=== PATIENT | female | born 1950 | race Caucasian/White ===

== ENCOUNTER 2020-10-22 23:16 | Emergency (ER) | payer MEDICARE ==
[2020-10-22] MEDS ORDERED: Zofran 4 MG/2 ML VIAL IV ONE (23:43)
[2020-10-22] MEDS ORDERED: Sodium Chloride 0.9% 1000 ML 1,000 ML IV STA (23:43)
--- NOTE | 2020-10-22 23:46 | ERPHSYRPT ---
- History of Present Illness Time Seen by Provider: 10/22/20 23:44 Historian: patient Exam Limitations: no limitations Patient Subjective Stated Complaint: "I'm vomiting and can't get over it." Triage Nursing Assessment: patient reported a one week onset of N/V/D that improved and then worsened. She reported having a mild cold and not being tested for COVID as she was feeling better. Denied taking her daily medications d/t the nausea. Reported 4 episodes of diarrhea today. Denied chest pain, shortness of breath, or abdominal pain. Reported non-productive cough lasting the same amount of time as the other symptoms. Pupils 3mm brisk bilateral. Oral mucosa pink/moist. neck supple without lymphadenopathy. Symmetrical chest expansion. Heart tones S1/S2 regular rate any rhythm. Lungs vesicular with fine crackles noted to the left lower lobes on the posterior aspect. Abdomen soft non-tender with bowel sounds present in all quadrants. Peripheral pulses +2 bilateral. No noted dependent edema. Physician History: "I'm vomiting and can't get over it." for 1 week patient reported a one week onset of N/V/D that improved and then worsened. She reported having a mild cold and not being tested for COVID as she was feeling better. Denied taking her daily medications d/t the nausea. Reported 4 episodes of diarrhea today. Denied chest pain, shortness of breath, or abdominal pain. Reported non-productive cough lasting the same amount of time as the other symptoms. Timing/Duration: week(s) (one week) Activities at Onset: none Severity of Pain-Max: mild Severity of Pain-Current: moderate Associated Symptoms: diarrhea Previous symptoms: no prior history Allergies/Adverse Reactions: Sulfa (Sulfonamide Antibiotics) [Sulfa(Sulfonamide Antibiotics)] Allergy (Mild, Unverified 10/22/20 23:26) Hives Home Medications: Esomeprazole Magnesium [Nexium] 1 tab PO DAILY 12/24/11 [History] Glyburide/Metformin HCl [Glucovance 2.5-500 mg Tablet] 1 tab PO BID 12/24/11 [History] Lisinopril-Hctz 10-12.5 mg Tab 1 tab PO HS 12/24/11 [History] Metoprolol Succinate 100 mg [Toprol Xl 100 MG] 1 tab PO DAILY 12/24/11 [His tory] Verapamil HCl [Verelan] 1 tab PO DAILY 12/24/11 [History] Beta-Carotene(A) W-C & E/Min [Ocuvite Tablet] 1 each PO DAILY 11/13/12 [History] Simvastatin 10 mg PO DAILY 11/13/12 [History] Ibuprofen 200 mg [Motrin 200 mg] 200 mg PO UD PRN 04/01/14 [History] Hx Tetanus, Diphtheria Vaccination/Date Given: No Hx Influenza Vaccination/Date Given: Yes (2019) Hx Pneumococcal Vaccination/Date Given: Yes Travel Risk - International Travel Have you traveled outside of the country in past 3 weeks: No - Coronavirus Screening Are you exhibiting any of the following symptoms?: No Close contact with a COVID-19 positive Pt in past 14-21 Days: No - Review of Systems Constitutional: No Fever, No Chills Eyes: No Symptoms Ears, Nose, & Throat: No Symptoms Respiratory: No Cough, No Dyspnea Cardiac: No Chest Pain, No Edema, No Syncope Abdominal/Gastrointestinal: Diarrhea, No Abdominal Pain, No Nausea, No Vomiting Genitourinary Symptoms: No Dysuria Musculoskeletal: No Back Pain, No Neck Pain Skin: No Rash Neurological: No Dizziness, No Focal Weakness, No Sensory Changes Psychological: No Symptoms Endocrine: No Symptoms All Other Systems: Reviewed and Negative - Past Medical History Pertinent Past Medical History: Yes Neurological History: No Pertinent History ENT History: Cataracts Cardiac History: High Cholesterol, Hypertension Respiratory History: No Pertinent History Endocrine Medical History: Diabetes Type II Musculoskeletal History: Arthritis GI Medical History: Ulcer History: No Pertinent History Psycho-Social History: No Pertinent History Female Reproductive Disorders: No Pertinent History Other Medical History: OA IN B KNEES - Past Surgical History Past Surgical History: Yes Neuro Surgical History: No Pertinent History Cardiac: Cardiac Catheterization Respiratory: No Pertinent History Gastrointestinal: Cholecystectomy Genitourinary: No Pertinent History Musculoskeletal: No Pertinent History, Orthopedic Surgery Female Surgical History: Section, Tubal Ligation Other Surgical History: Back surgery in 2014 - Social History Smoking Status: Never smoker Exposure to second hand smoke: No Drug Use: none Patient Lives Alone: No - Female History Hx Now: No - Nursing Vital Signs Nursing Vital Signs: Initial Vital Signs Pulse Rate 82 10/22/20 23:17 Respiratory Rate 16 10/22/20 23:17 Blood Pressure 163/80 10/22/20 23:17 O2 Sat by Pulse Oximetry 92 L 10/22/20 23:17 Pain Scale Pain Intensity 0 - Physical Exam General Appearance: no apparent distress, alert Eye Exam: PERRL/EOMI, eyes nml inspection Ears, Nose, Throat Exam: normal ENT inspection, pharynx normal, moist mucous membranes Neck Exam: normal inspection, non-tender, supple, full range of motion Respiratory Exam: normal breath sounds, lungs clear, No respiratory distress Cardiovascular Exam: regular rate/rhythm, normal heart sounds Gastrointestinal/Abdomen Exam: soft, No tenderness, No mass Back Exam: normal inspection, normal range of motion, No CVA tenderness, No vertebral tenderness Extremity Exam: normal inspection, normal range of motion, pelvis stable Neurologic Exam: alert, oriented x 3, cooperative, normal mood/affect, nml cerebellar function, sensation nml, No motor deficits Skin Exam: normal color, warm, dry SpO2: 92 - Course Nursing assessment & vital signs reviewed: Yes - Radiology Exams Chest X-ray Interpretation: Reviewed by me, Negative Ordered Tests: Active Orders 24 hr Category Date Time Status CHEST 1 VIEW (PORTABLE) Stat Exams 10/23/20 00:01 Taken AMYLASE Stat Lab 10/22/20 00:04 Completed CBC W DIFF Stat Lab 10/22/20 00:04 Completed CMP Stat Lab 10/22/20 00:04 Completed LIPASE Stat Lab 10/22/20 00:04 Completed Manual Differential NC Stat Lab 10/22/20 00:04 Completed UA W/RFX UR CULTURE Stat Lab 10/22/20 23:43 Ordered Medication Summary Generic Name Dose Route Start Last Admin Trade Name Freq PRN Reason Stop Dose Admin Sodium Chloride 1,000 mls @ 999 mls/hr 10/22/20 23:43 10/23/20 00:05 Sodium Chloride 0.9% 1000 Ml IV 10/23/20 00:43 999 mls/hr .Q1H1M STA Administration Discontinued Medications Generic Name Dose Route Start Last Admin Trade Name Freq PRN Reason Stop Dose Admin Sodium Chloride Confirm 10/23/20 00:04 Sodium Chloride 0.9% 1000 Ml Administered 10/23/20 00:05 Dose 1,000 mls @ ud .ROUTE .STK-MED ONE Ondansetron HCl 4 mg 10/22/20 23:43 10/23/20 00:05 Zofran 4 Mg/2 Ml Vial IV 10/22/20 23:44 4 mg STAT ONE Administration Ondansetron HCl Confirm 10/23/20 00:04 Zofran 4 Mg/2 Ml Vial Administered 10/23/20 00:05 Dose 4 mg .ROUTE .STK-MED ONE Potassium Bicarbonate 50 meq 10/23/20 00:33 K-Lyte 25 Meq PO 10/23/20 00:34 STAT ONE Lab/Rad Data: Laboratory Result Diagrams 10/22/20 00:04 10/22/20 00:04 Laboratory Results 10/22/20 10/22/20 Range/Units 00:04 00:04 WBC 7.7 (4.0-10.5) K/mm3 RBC 4.42 (4.1-5.4) M/mm3 Hgb 10.7 L (12.0-16.0) gm/dl Hct 33.1 L (35-47) % MCV 74.9 L (78-100) fl MCH 24.2 L (26-32) pg MCHC 32.3 (32-36) g/dl RDW 14.9 H (11.5-14.0) % Plt Count 275 (150-450) K/mm3 MPV 9.8 (7.5-11.0) fl Sodium 127 L (137-145) mmol/L Potassium 3.2 L (3.5-5.1) mmol/L Chloride 85 L (98-107) mmol/L Carbon Dioxide 33 H (22-30) mmol/L Anion Gap 11.9 (5-15) MEQ/L BUN 11 (7-17) mg/dL Creatinine 0.83 (0.52-1.04) mg/dL Estimated GFR > 60.0 ML/MIN Glucose 158 H (74-106) mg/dL Calcium 8.6 (8.4-10.2) mg/dL Total Bilirubin 0.50 (0.2-1.3) mg/dL AST 18 (14-36) U/L ALT 10 (0-35) U/L Alkaline Phosphatase 151 H (38-126) U/L Serum Total Protein 7.0 (6.3-8.2) g/dL Albumin 3.7 (3.5-5.0) g/dL Amylase 34 (30-110) U/L Lipase 70 (23-300) U/L - Progress Progress: improved Counseled pt/family regarding: lab results, diagnosis, need for follow-up, rad results - Departure Departure Disposition: Home Clinical Impression: Diarrhea due to drug, Dehydration, Hypokalemia due to excessive gastrointestinal loss of potassium Condition: Stable Critical Care Time: No Referrals: RAMAKRISHNA GONZALES MD [Primary Care Provider] - Instructions: Viral Gastroenteritis, Diarrhea in Adolescents and Adults, Antibiotic-Associated Diarrhea (C. difficile Infection) Additional Instructions: JO RAMSEY was seen on 10/23/20 n the Emergency Room. At that time you were treated for an emergent condition, during your visit Laboratory, Radiology and/or other procedures may have been ordered. It is very important that you follow-up with your Primary Care Physician RAMAKRISHNA GONZALES within the next 24-48 hours to review your Emergency Room visit and the final results of testing that was ordered. Some test results such as Urine Cultures, Blood Cultures, and other cultures if ordered will not be finalized for 24-48 hours. If you do not have a Primary Care Provider please call the medical records department at [phone] ext [phone] to obtain a copy of your results or you may sign into our patient portal to obtain these results by visiting us @ [email or web address] and completing the following steps: 1. Click on the Patient Portal link 2. Click the Patient Self Enrollment Link to complete the enrollment form and entering your 3. Once the enrollment form is completed you will receive an email with a temporary ID and password at the email address you provided. 4. Next choose a user name and password. Your user name must be at least 4 characters long and your password must be at least 4 characters long. 5. Choose a security question from the list and provide your answer to the question. If you already have signed into the Health Portal you may access your Health Care Information 25/02 by the following steps: 1. Login to our website @ [email or web address] 2. Enter your original user name and password. FAQS The [facility] Health Portal is an online tool that contains your Lab Results, Radiology Reports, Visit History, Discharge Instructions and Health Summary Lab and Radiology Results will not be available for 72 hours on the portal. The Portal is a secure site, passwords are encryted and URLs are re-written so they cannot be copied and pasted. You and authorized family members are the only ones who can access your Portal. Also there is a timeout feature that protects your information if you leave the Portal page open. If you have technical difficulty please use the Contact Us link on the page this will allow you to submit any questions you have regarding the Portal or you may contact the Medical Record Department at [phone].Discharge/Care Plan JO RAMSEY was seen on 10/23/20 in the Emergency Room. The patient was counseled regarding Diagnosis,Lab results, Imaging studies, need for follow up and when to return to the Emergency Room. Prescriptions given: Discharge Note I have spoken with the patient and/or caregivers. I have explained the patient's condition, diagnosis and treatment plan based on the information available to me at this time. I have answered the patient's and/or caregiver's questions and addressed any concerns. The patient and/or caregivers have as good understanding of the patient's diagnosis, condition and treatment plan as can be expected at this point. The vital signs have been stable. The patient's condition is stable and appropriate for discharge from the emergency department. The patient will pursue further outpatient evaluation with the primary care physician or other designated or consulting physician as outlined in the discharge instructions. The patient and/or caregivers are agreeable to this plan of care and follow-up instructions have been explained in detail. The patient and/or caregivers have received these instruction. The patient/and or caregivers are aware that any significant change in condition or worsening of symptoms should prompt an immediate return to this or the closest emergency department or call 911. Prescriptions: Diphenoxylate HCl/Atropine [Lomotil] 1 tablet PO QID PRN #20 tablet PRN Reason: Diarrhea
[2020-10-23] MEDS ORDERED: Zofran 4 MG/2 ML VIAL ONE (00:04)
[2020-10-23] MEDS ORDERED: Sodium Chloride 0.9% 1000 ML 1,000 ML ONE (00:04)
[2020-10-23 00:07] LABS: Hematocrit 33.1 % (35-47); Hemoglobin 10.7 gm/dl (12.0-16.0); Mean Cell Volume 74.9 fl (78-100); Mean Corpuscular Hemoglobin 24.2 pg (26-32); Mean Corpuscular Hgb Concent. 32.3 g/dl (32-36); Mean Platelet Volume 9.8 fl (7.5-11.0); Platelet Count 275 K/mm3 (150-450); Red Blood Count 4.42 M/mm3 (4.1-5.4); Red Cell Distribution Width 14.9 % (11.5-14.0); White Blood Count 7.7 K/mm3 (4.0-10.5)
[2020-10-23 00:19] LABS: ALBUMIN 3.7 g/dL (3.5-5.0); ALKALINE PHOSPHATASE 151 U/L (38-126); AMYLASE 34 U/L (30-110); ANION GAP 11.9 MEQ/L (5-15); BLOOD UREA NITROGEN 11 mg/dL (7-17); CHLORIDE 85 mmol/L (98-107); Calcium 8.6 mg/dL (8.4-10.2); Carbon Dioxide 33 mmol/L (22-30); Creatinine 1 0.83 mg/dL (0.52-1.04); EST GLOMERULAR FILTRATION RATE > 60.0 ML/MIN; Glucose 158 mg/dL (74-106); LIPASE 70 U/L (23-300); Potassium 3.2 mmol/L (3.5-5.1); SGOT/AST 18 U/L (14-36); SGPT/ALT 10 U/L (0-35); SODIUM 127 mmol/L (137-145)
[2020-10-23 00:22] VITALS: BP 162/77; PULSE 71
[2020-10-23] MEDS ORDERED: K-LYTE 25 MEQ PO ONE (00:33)
[2020-10-23] MEDS ORDERED: K-LYTE 25 MEQ ONE (00:38)
[2020-10-23 00:42] VITALS: O2SAT 92
[2020-10-23 02:31] LABS: ATYPICAL LYMPHS 1 %; BAND 1 % (0.0-2.0); Lymphocytes 17 % (24-44); Monocyte 9 % (0.0-12.0); Neutrophils 72 % (36.0-66.0); Total Cells Counted 100
[2020-10-23 02:32] LABS: Microcytosis 1+; Platelet Estimate NORMAL (NORMAL)
--- NOTE | 2020-10-23 08:14 | XRAY ---
Indication: Cough. Emesis. Comparison: April 02, 2019. Portable apical lordotic chest is now underinflated accentuating cardiopulmonary structures. No focal infiltrate, consolidation, or large effusion. Heart is not enlarged. Bony thorax intact. Impression: Nonacute underinflated chest.
== END 2020-10-23 01:15 | disposition home or self-care (01) ==
LOC: ED 23:16
DX: K52.1 Toxic gastroenteritis and colitis (principal); E86.0 Dehydration; E87.6 Hypokalemia; I10 Essential (primary) hypertension; E11.9 Type 2 diabetes mellitus without complications; E78.00 Pure hypercholesterolemia, unspecified; Z79.899 Other long term (current) drug therapy
CPT/HCPCS: 36000; 36415; 71045; 80053; 82150; 83690; 85025; 96360; 96374; 99284; U0003; J2405; A9270-GY

== ENCOUNTER 2020-12-15 08:39 | Day surgery (SDC) | payer MEDICARE ==
--- NOTE | 2020-12-12 10:52 | HP ---
DATE OF SURGERY: 12/15/2020 HISTORY OF PRESENT ILLNESS: The patient presented with end stage left carpal tunnel syndrome. The patient desires surgical intervention. The patient also is concerned about atypical lesions on the bridge of the nose and left nares. PAST MEDICAL HISTORY: Diabetes. Hyperlipidemia. Hypertension. PAST SURGICAL HISTORY: section. Laparoscopic cholecystectomy. Knee replacement. Lumbar back surgery. ALLERGIES: SULFA. MEDICATIONS: Levemir, Metformin, Atorvastatin, lisinopril, Verapamil. FAMILY HISTORY: Heart disease. Cancer. SOCIAL HISTORY: None reported. REVIEW OF SYSTEMS: CONSTITUTIONAL: Denies fever or chills. CHEST: Denies shortness of breath. CVS: Denies chest pain. ABDOMEN: Denies abdominal pain, nausea, vomiting, diarrhea, constipation. PHYSICAL EXAMINATION: GENERAL: No acute distress. CHEST: Nonlabored. No shortness of breath. CVS: Regular rate and rhythm. ABDOMEN: Soft, nontender to palpation. EXTREMITIES: No edema. NEUROLOGIC: Alert. PSYCHIATRIC: Appropriate. IMPRESSION: 1) End stage carpal tunnel syndrome left hand. 2) Atypical skin lesions bridge of nose and left nares. PLAN: Left carpal tunnel release and excision of bridge of nose skin lesion with possible split thickness skin graft and excision of left nares lesion with Dr. Stas Sears. As dictated by Ethel Faulkner NP.
[~2020-12-15 08:39] MED LIST: Lactated Ringers 1,000 ML IV ONE
[2020-12-15] MEDS ORDERED: Lactated Ringers 1,000 ML IV ONE (08:45)
[2020-12-15] MEDS ORDERED: Lactated Ringers 1,000 ML IV SCH (09:00)
[2020-12-15] MEDS ORDERED: CEFAZOLIN 2 GM-D5W BAG** 2 GM/50 ML ML IV SCH (09:30)
[2020-12-15] MEDS ORDERED: Sensorcaine 0.25% 10 ML ONE (09:38)
[2020-12-15] MEDS ORDERED: MINERAL OIL LIGHT 10 ML FOR SURGERY ONE (09:38)
[2020-12-15] MEDS ORDERED: DIPRIVAN 200 MG/20 ML IV ONE (10:59)
[2020-12-15] MEDS ORDERED: SUBLIMAZE 100 MCG/2 ML ONE ×2 (11:11→11:25)
[2020-12-15] MEDS ORDERED: Versed 2 MG/2 ML Injection ONE (11:11)
[2020-12-15] MEDS ORDERED: Triple Antibiotic Ointment ONE (12:13)
[2020-12-15 14:08] VITALS: BP 147/78; PULSE 64; O2SAT 99
--- NOTE | 2020-12-15 14:45 | OP ---
SURGERY DATE/TIME: 12/15/2020 1117 PREOPERATIVE DIAGNOSES: 1) Left carpal tunnel syndrome severe. 2) Left atypical base of nose lesion 8 mm. POSTOPERATIVE DIAGNOSES: 1) Left carpal tunnel syndrome severe. 2) Left atypical base of nose lesion 8 mm. PROCEDURES: 1) Left carpal tunnel release, open. 2) Excision 8 mm lesion through a 1.5 x 8 cm x 8 mm excision of the nose with closure. SURGEON: Stas Sears M.D. ANESTHESIA: General. COMPLICATIONS: None. CONDITION: Stable. INDICATION: The patient with the above two conditions. DESCRIPTION OF PROCEDURE: Taken to surgery. General anesthetic. Routine prep and drape. 0.25% Marcaine. Traditional wrist incision fairly small, dissection carried down. Transverse carpus ligament identified. It was scored. It was scored a hemostat and a groove director. Excessively tight towards the distal edge totally opened proximal and distally. The perineum through the distal two-thirds was also opened. Hemostasis satisfactory. A drain was placed. It was closed with 4-0 Prolene simple interrupted sutures. Sterile dressing applied. Splint applied. Left nose elliptical excision and closed with 4-0 Prolene. The patient tolerated the procedures satisfactory.
== END 2020-12-15 13:50 | disposition home or self-care (01) ==
LOC: SDC 08:39
PROVIDERS: ATTEND Surgery
DX: G56.02 Carpal tunnel syndrome, left upper limb (principal); C44.311 Basal cell carcinoma of skin of nose; E11.9 Type 2 diabetes mellitus without complications; I10 Essential (primary) hypertension; E78.5 Hyperlipidemia, unspecified; Z79.899 Other long term (current) drug therapy
CPT/HCPCS: 82947; 88305; A4570; J0690; J2250; J2704; J3010; A9270-GY

== ENCOUNTER 2022-05-31 06:57 | Day surgery (SDC) | payer MEDICARE ==
--- NOTE | 2022-04-16 15:00 | HP ---
DATE OF SURGERY: 04/19/2022 HISTORY OF PRESENT ILLNESS: The patient is a 71-year-old female presents with complaints of some bloody stools and diarrhea. She is also having some cramping. The patient also has epigastric pain and discomfort with bloating and belching. She has history some reflux. PAST MEDICAL HISTORY: Hypertension, diabetes, hyperlipidemia, arthritis, reflux. PAST SURGICAL HISTORY: Appendectomy. Tubal ligation. section. Cholecystectomy. ALLERGIES: SULFA. MEDICATIONS: Chlorthalidone, lisinopril, Levemir, metformin, atorvastatin, Verapamil, metoprolol, aspirin. FAMILY HISTORY: None. SOCIAL HISTORY: None. REVIEW OF SYSTEMS: CONSTITUTIONAL: Denies fever or chills. CHEST: Denies shortness of breath. CVS: Denies chest pain. ABDOMEN: Reports abdominal pain. Denies nausea, vomiting. Reports diarrhea and rectal bleeding. PHYSICAL EXAMINATION: GENERAL: No acute distress. CHEST: Nonlabored. No shortness of breath. CVS: Regular rate and rhythm. ABDOMEN: Soft, nontender. IMPRESSION: Epigastric pain, bloating, reflux, diarrhea and blood in the stool. PLAN: EGD and colonoscopy with Dr. Stas Sears. As dictated by Ethel Faulkner NP.
--- NOTE | 2022-05-29 13:03 | HP ---
DATE OF SURGERY: 05/31/2022 HISTORY OF PRESENT ILLNESS: The patient presents with complaints of blood in the stool. The patient has had bloody diarrhea with abdominal cramping. The patient also reports epigastric discomfort with bloating, belching and reflux. PAST MEDICAL HISTORY: Hyperlipidemia. Arthritis. Diabetes. Hypertension. PAST SURGICAL HISTORY: Appendectomy. Tubal ligation. section. Cholecystectomy. ALLERGIES: SULFA. MEDICATIONS: Chlorthalidone, lisinopril, Levemir, Metformin, atorvastatin, Verapamil, Nexium, metoprolol, aspirin. FAMILY HISTORY: None. SOCIAL HISTORY: None. REVIEW OF SYSTEMS: CONSTITUTIONAL: Denies fever or chills. CHEST: Denies shortness of breath. CVS: Denies chest pain. ABDOMEN: Reports crampy abdominal pain, rectal bleeding and diarrhea. PHYSICAL EXAMINATION: GENERAL: No acute distress. CHEST: Nonlabored. No shortness of breath. CVS: Regular rate and rhythm. ABDOMEN: Soft. IMPRESSION: Epigastric pain, bloating, reflux, diarrhea and rectal bleeding. PLAN: EGD and colonoscopy with Dr. Stas Sears. As dictated by Ethel Faulkner NP.
[2022-05-31] MEDS ORDERED: GlucaGen 1 MG IM ONE (06:58)
[2022-05-31] MEDS ORDERED: Lactated Ringers 1,000 ML IV SCH (07:30)
[2022-05-31] MEDS ORDERED: DIPRIVAN 200 MG/20 ML IV ONE ×3 (10:44→11:13)
[2022-05-31] MEDS ORDERED: Xylocaine-Mpf 2% 5 Ml Vial ONE (10:44)
[2022-05-31 11:28] VITALS: BP 139/67; PULSE 57; O2SAT 97
--- NOTE | 2022-05-31 11:53 | OP ---
SURGERY DATE/TIME: 07/01/2022 1052 PREOPERATIVE DIAGNOSIS: Epigastric acute pain, diarrhea, bloating and rectal bleeding. POSTOPERATIVE DIAGNOSES: 1) Grade 2 over 4 gastroesophageal reflux disease. 2) A 1 inch hiatal hernia. 3) Excoriated internal and external hemorrhoids otherwise satisfactory. PROCEDURES: 1) EGD with cold biopsy for Helicobacter pylori. 2) Colonoscopy complete to cecum with stool samples for clostridium difficile, ova and parasite, stool pathogens. SURGEON: Stas Sears M.D. ANESTHESIA: MAC. COMPLICATIONS: None. CONDITION: Stable. INDICATION: The patient has had some bloating, diarrhea, rectal bleeding and epigastric pain despite medications. She presents for evaluation. DESCRIPTION OF PROCEDURE: Patient taken to endoscopy. Left lateral decubitus position. Scope introduced. Pharyngoesophageal junction normal. Esophagus normal down to gastroesophageal junction. Grade 2 over 4 gastroesophageal reflux disease. A 1 inch hiatal hernia. Fundus, body, antrum satisfactory. Plan Consultant biopsy for JACKSON-test. Pylorus, duodenal bulb, second portion satisfactory. The scope withdrawn looped upon itself. A 1 inch hiatal hernia. Scope withdrawn. Anal digital examination satisfactory tone. The trap was placed. The scope was placed. Aspirating stool on the way up. Stool sent for clostridium difficile, ova and parasite, stool pathogens. The cecum was cannulated. Base of the cecum, ileocecal valve, no visible appendiceal orifice. Ascending, hepatic, transverse, splenic, descending, sigmoid, rectum and anus. There was no mucous. There was no erythema. There was no suggestion of any chronic colitis. I think she just finally has substantially irritable bowel syndrome. She did have very excoriated internal and external hemorrhoids which would account for the bleeding. PLAN: Rescope lower in five years.
== END 2022-05-31 11:41 | disposition home or self-care (01) ==
LOC: SDC 06:57
PROVIDERS: ATTEND Surgery
DX: K21.9 Gastro-esophageal reflux disease without esophagitis (principal); R10.13 Epigastric pain; R19.7 Diarrhea, unspecified; K62.5 Hemorrhage of anus and rectum; E11.9 Type 2 diabetes mellitus without complications; K44.9 Diaphragmatic hernia without obstruction or gangrene; K64.8 Other hemorrhoids; K64.4 Residual hemorrhoidal skin tags
CPT/HCPCS: 82947; 87045; 87046; 87081; 99100; J1610; J2704